=== PATIENT | male | born 1950 | race Caucasian/White ===

== ENCOUNTER 2018-06-10 14:57 | Emergency (ER) | payer OTHER, MEDICARE ==
[~2018-06-10] VITALS: Ht 167.6 cm; Wt 45.6 kg
[2018-06-10 15:49] LABS: BASOPHIL (%) 0.5 % (0-1); BASOPHIL COUNT 0.1 K/uL (0-0.1); EOSINOPHIL (%) 0.6 % (0-5); EOSINOPHIL COUNT 0.1 K/uL (0-0.3); HEMATOCRIT 39.3 % (38.0-50.0); HEMOGLOBIN 12.8 G/DL (12.5-16.6); IMMATURE GRANULOCYTE (%) 0.4 % (0.0-0.7); LYMPHOCYTE (%) 9.1 % (15-42); LYMPHOCYTE COUNT 1.5 K/uL (1.0-2.8); MCH 31.5 PG (29.0-34.0); MCHC 32.6 G/DL (30.0-36.0); MCV 96.8 FL (86-99); MONOCYTE (%) 4.2 % (3-12); MONOCYTE COUNT 0.7 K/uL (0-0.8); NEUTROPHIL (%) 85.2 % (45-76); NEUTROPHIL COUNT 13.6 K/uL (1.8-6.4); RBC DIS.WIDTH-CV 13.5 % (11.8-14.6); RBC DIS.WIDTH-SD 48.8 % (39-53); RED BLOOD COUNT 4.06 M/uL (4.00-5.50)
[2018-06-10 15:51] LABS: PLATELET COUNT 372 K/uL (156-360)
[2018-06-10 15:53] LABS: CHLORIDE 114 mEq/L (99-109); POTASSIUM 4.9 mEq/L (3.7-5.4); SODIUM 147 mEq/L (136-147)
[2018-06-10 15:55] LABS: GLUCOSE 149 mg/dL (70-99)
[2018-06-10 15:59] LABS: CREATININE 1.1 mg/dL (0.6-1.3)
[2018-06-10 16:00] LABS: UREA NITROGEN (BUN) 25 mg/dL (9-23)
[2018-06-10 16:01] LABS: GFR ESTIMATE (CALCULATED) > 59 mL/min/ (58.99-99999)
[2018-06-10 17:37] LABS: APPEARANCE CLEAR ((CLEAR)); BILIRUBIN NEGATIVE; BLOOD NEGATIVE; COLOR STRAW ((YELLOW)); GLUCOSE (STRIP) NEGATIVE; KETONES NEGATIVE; LEUKOCYTES NEGATIVE; NITRITE NEGATIVE; PROTEIN (STRIP) NEGATIVE; SPECIFIC GRAVITY 1.004 (1.000-1.030); UCUL ADDED? NO; UROBILINOGEN 0.2 MG/DL (0.2-1.0)
[2018-06-10 18:44] VITALS: BP 108/82
== END 2018-06-10 18:52 ==
LOC: EME 14:57
PROVIDERS: Emergency Medicine
DX: M79.605 Pain in left leg (principal); G62.9 Polyneuropathy, unspecified; F32.9 Major depressive disorder, single episode, unspecified; Z85.850 Personal history of malignant neoplasm of thyroid; Z85.05 Personal history of malignant neoplasm of liver; Z85.528 Personal history of other malignant neoplasm of kidney; Z87.891 Personal history of nicotine dependence
CPT/HCPCS: 71045; 80048; 81003; 85025; 93971; 99281; 99284